=== PATIENT | male | born 1990 | race Caucasian/White ===

== ENCOUNTER 2021-05-12 22:29 | Emergency (ER) | payer BC ==
[2021-05-12] MEDS ORDERED: Sodium Chloride 0.9% 2.5 ML Syringe FLUSH PRN (23:48)
[2021-05-12] MEDS ORDERED: Sodium Chloride 0.9% 1,000 ML IV ONE (23:48)
[2021-05-12] MEDS ORDERED: Sodium Chloride 0.9% 10 ML Syringe FLUSH PRN (23:48)
[2021-05-12] MEDS ORDERED: Ondansetron 4 MG/2 ML SDV IVPUSH ONE (23:48)
[2021-05-12] MEDS ORDERED: Ketorolac 15 MG/ML SDV IVPUSH ONE (23:48)
[2021-05-12] MEDS ORDERED: HYDROmorphone 1 MG/ML Syringe IVPUSH ONE (23:48)
[2021-05-12] MEDS ORDERED: HYDROmorphone 1 MG/ML Syringe ONE (23:50)
--- NOTE | 2021-05-12 23:57 | EDM.PDOC ---
ED HPI GENERAL MEDICAL PROBLEM - General Chief Complaint: Genitourinary Problem Stated Complaint: SEVERE GROIN PAIN Time Seen by Provider: 05/12/21 23:40 - History of Present Illness INITIAL COMMENTS - FREE TEXT/NARRATIVE: HISTORY AND PHYSICAL: History of present illness: This is a 30-year-old gentleman with a history significant for kidney stone that was diagnosed approximately 1 month ago who presents ER today complaining of left testicular pain that started earlier this evening. Patient reports that he had pain in his testicle in the past when he was diagnosed with a kidney stone however does feel slightly worse. Patient reports that he did have an ultrasound of his left testicle at that time that revealed no torsion. Patient has any recent fevers, shakes, chills, nausea, vomiting, diarrhea, dysuria, frequency or urgency. Patient has any hematuria or penile discharge. Review of systems: As per history of present illness and below otherwise all systems reviewed and negative. Past medical history: As per history of present illness and as reviewed below otherwise noncontributory. Surgical history: As per history of present illness and as reviewed below otherwise noncontributory. Social history: No reported history of drug abuse. Family history: As per history of present illness and as reviewed below otherwise noncontributory. Physical exam: This patient was seen and evaluated during the 2019 SARS-CoV-2 novel coronavirus pandemic period. Community viral transmission is ongoing at time of this encounter and the emergency department is operating under pandemic response procedures. Constitutional: Patient is oriented to person, place, and time. Appears well- developed and well-nourished. No distress. HEENT: Moist mucous membranes Head: Normocephalic and atraumatic Eyes: Right eye exhibits no discharge. Left eye exhibits no discharge. No scleral icterus Neck: Normal range of motion. No tracheal deviation present. Cardiovascular: Normal rate and regular rhythm. Pulmonary: Effort normal, no respiratory distress. Abdominal: No distention Musculoskeletal: Normal range of motion Neurologic: Alert and oriented to person, place and time. Skin: [place], warm and dry. Psychiatric: Normal mood and affect. Behavior is normal. Judgment and thought content normal. Nursing note and vital signs have been reviewed Testes are nontender. No swelling, masses, lymphadenopathy, or hernia defect. Normal cremasteric reflex. No penile discharge. Diagnostics: Ultrasound of scrotum: No evidence of torsion CBC, CMP within normal limits CT scan of the abdomen pelvis the contrast revealed a 5 mm distal UVJ stone with mild hydronephrosis on the left Therapeutics: Toradol, Flomax, NSS Assessment and plan: 28-year-old gentleman who presents ER today with history of kidney stones complaining of pain to his left testicle. Ultrasound reveals no evidence of torsion. A CT scan of the abdomen pelvis reveals a 5 mm distal UVJ stone on the left as the culprit. Unclear whether or not this the same stone from a month ago or different stone. Patient was given a prescription for tramadol, Flomax, Zofran with instructions follow-up with urology. Reassessment at the time of disposition demonstrates that the patient is in no acute distress. The patient has remained stable throughout the entire ED visit and is without objective evidence for acute process requiring urgent in tervention or hospitalization. The patient is stable for discharge, counseling is provided as documented above, discussed symptomatic treatment and specific conditions for return. I have spoken with the patient/caregiver and discussed todays findings, in addition to providing specific details for the plan of care. Questions are answered and there is agreement with the plan. Definitive disposition and diagnosis as appropriate pending reevaluation and review of above. Left Scrotum Pain Score (Numeric/FACES): 10 - Related Data Allergies Allergy/AdvReac Type Severity Reaction Status Date / Time amoxicillin [From Augmentin] Allergy Other Verified 05/13/21 00:00 azithromycin Allergy Other Verified 05/13/21 00:00 clavulanic acid Allergy Other Verified 05/13/21 00:00 [From Augmentin] Home Meds: Home Meds Fingolimod [Gilenya] 0.5 mg PO DAILY 05/13/21 [History] Ibuprofen 600 mg PO Q6HR PRN #30 tablet 05/13/21 [Rx] Ondansetron [Zofran ODT] 4 mg PO Q6H PRN #12 tab.dis 05/13/21 [Rx] Sertraline [Zoloft] 100 mg PO DAILY 05/13/21 [History] Tamsulosin HCl [Flomax] 0.4 mg PO BEDTIME #7 cap.er.24h 05/13/21 [Rx] traMADol [Ultram] 50 mg PO Q6H PRN #12 tab 05/13/21 [Rx] Past Medical History Genitourinary History: Reports: Renal Calculus Musculoskeletal History: Reports: Other (See Below) Other Musculoskeletal History: multiple sclerosis Psychiatric History: Reports: Anxiety, PTSD Immunologic History: Reports: None - Infectious Disease History Infectious Disease History: Reports: Chicken Pox Social & Family History - Tobacco Use Tobacco Use Status *Q: Light Tobacco User Years of Tobacco use: 15 Packs/Tins Daily: 0.5 - Caffeine Use Caffeine Use: Reports: Energy Drinks - Recreational Drug Use Recreational Drug Use: No ED ROS GENERAL - Review of Systems Review Of Systems: See Below ED EXAM, GENERAL - Physical Exam Exam: See Below Course - Vital Signs Last Recorded V/S: Last Vital Signs Temp 97.9 F 05/12/21 23:16 Pulse 70 05/13/21 02:51 Resp 18 05/13/21 02:51 BP 110/74 05/13/21 02:51 Pulse Ox 97 05/13/21 02:51 - Orders/Labs/Meds Orders: Active Orders 24 hr Category Date Time Status Scrotal Duplex Ltd [US] Routine Exams 05/13/21 00:33 Taken Sodium Chloride 0.9% [Saline Flush] Med 05/12/21 23:48 Active 10 ml FLUSH ASDIRECTED PRN Sodium Chloride 0.9% [Saline Flush] Med 05/12/21 23:48 Active 2.5 ml FLUSH ASDIRECTED PRN Saline Lock Insert [OM.PC] Stat Oth 05/12/21 23:48 Ordered Medication Orders Sodium Chloride (Sodium Chloride 0.9% 10 Ml Syringe) 10 ml FLUSH ASDIRECTED PRN PRN Reason: Keep Vein Open Last Admin: 05/12/21 23:54 Dose: 10 ml Documented by: LAUREN Sodium Chloride (Sodium Chloride 0.9% 2.5 Ml Syringe) 2.5 ml FLUSH ASDIRECTED PRN PRN Reason: Keep Vein Open Last Admin: 05/12/21 23:55 Dose: 2.5 ml Documented by: LAUREN Labs: Laboratory Tests 05/12/21 05/12/21 05/12/21 Range/Units 22:45 22:45 23:52 WBC 11.86 H (4.0-11.0) K/uL RBC 5.59 (4.50-5.90) M/uL Hgb 16.4 (13.0-17.0) g/dL Hct 46.3 (38.0-50.0) % MCV 82.8 (80.0-98.0) fL MCH 29.3 (27.0-32.0) pg MCHC 35.4 (31.0-37.0) g/dL RDW Std Deviation 39.7 (28.0-62.0) fl RDW Coeff of Diana 13 (11.0-15.0) % Plt Count 256 (150-400) K/uL MPV 11.40 (7.40-12.00) fL Neut % (Auto) 76.1 (48.0-80.0) % Lymph % (Auto) 14.2 L (16.0-40.0) % [place] % (Auto) 7.4 (0.0-15.0) % Eos % (Auto) 2.0 (0.0-7.0) % Baso % (Auto) 0.3 (0.0-1.5) % Neut # (Auto) 9.0 H (1.4-5.7) K/uL Lymph # (Auto) 1.7 (0.6-2.4) K/uL [place] # (Auto) 0.9 H (0.0-0.8) K/uL Eos # (Auto) 0.2 (0.0-0.7) K/uL Baso # (Auto) 0.0 (0.0-0.1) K/uL Nucleated RBC % 0.0 /100WBC Nucleated RBCs # 0 K/uL Sodium (136-148) mmol/L Potassium (3.5-5.1) mmol/L Chloride (98-107) mmol/L Carbon Dioxide (21.0-32.0) mmol/L BUN (7.0-18.0) mg/dL Creatinine (0.8-1.3) mg/dL Est Cr Clr Drug Dosing mL/min Estimated GFR (MDRD) ml/min Glucose (74-106) mg/dL Calcium (8.5-10.1) mg/dL Total Bilirubin (0.2-1.0) mg/dL AST (15-37) IU/L ALT (14-63) IU/L Alkaline Phosphatase (46-116) U/L Total Protein (6.4-8.2) g/dL Albumin (3.4-5.0) g/dL Globulin (2.6-4.0) g/dL Albumin/Globulin Ratio (0.9-1.6) Urine Color YELLOW YELLOW Urine Appearance CLEAR HAZY Urine pH 6.0 6.0 (5.0-8.0) Ur Specific [place] >= 1.030 >= 1.030 (1.001-1.035) Urine Protein NEGATIVE NEGATIVE (NEGATIVE) mg/dL Urine Glucose (UA) NEGATIVE NEGATIVE (NEGATIVE) mg/dL Urine Ketones NEGATIVE NEGATIVE (NEGATIVE) mg/dL Urine Occult Blood NEGATIVE NEGATIVE (NEGATIVE) Urine Nitrite NEGATIVE NEGATIVE (NEGATIVE) Urine Bilirubin NEGATIVE NEGATIVE (NEGATIVE) Urine Urobilinogen 0.2 0.2 (<2.0) EU/dL Ur Leukocyte Esterase NEGATIVE NEGATIVE (NEGATIVE) 05/12/21 Range/Units 23:52 WBC (4.0-11.0) K/uL RBC (4.50-5.90) M/uL Hgb (13.0-17.0) g/dL Hct (38.0-50.0) % MCV (80.0-98.0) fL MCH (27.0-32.0) pg MCHC (31.0-37.0) g/dL RDW Std Deviation (28.0-62.0) fl RDW Coeff of Diana (11.0-15.0) % Plt Count (150-400) K/uL MPV (7.40-12.00) fL Neut % (Auto) (48.0-80.0) % Lymph % (Auto) (16.0-40.0) % [place] % (Auto) (0.0-15.0) % Eos % (Auto) (0.0-7.0) % Baso % (Auto) (0.0-1.5) % Neut # (Auto) (1.4-5.7) K/uL Lymph # (Auto) (0.6-2.4) K/uL [place] # (Auto) (0.0-0.8) K/uL Eos # (Auto) (0.0-0.7) K/uL Baso # (Auto) (0.0-0.1) K/uL Nucleated RBC % /100WBC Nucleated RBCs # K/uL Sodium 143 (136-148) mmol/L Potassium 4.0 (3.5-5.1) mmol/L Chloride 102 (98-107) mmol/L Carbon Dioxide 30.0 (21.0-32.0) mmol/L BUN 14 (7.0-18.0) mg/dL Creatinine 1.4 H (0.8-1.3) mg/dL Est Cr Clr Drug Dosing 85.61 mL/min Estimated GFR (MDRD) 58.7 ml/min Glucose 130 H (74-106) mg/dL Calcium 9.0 (8.5-10.1) mg/dL Total Bilirubin 0.7 (0.2-1.0) mg/dL AST 54 H (15-37) IU/L ALT 129 H (14-63) IU/L Alkaline Phosphatase 86 (46-116) U/L Total Protein 8.2 (6.4-8.2) g/dL Albumin 4.5 (3.4-5.0) g/dL Globulin 3.7 (2.6-4.0) g/dL Albumin/Globulin Ratio 1.2 (0.9-1.6) Urine Color Urine Appearance Urine pH (5.0-8.0) Ur Specific [place] (1.001-1.035) Urine Protein (NEGATIVE) mg/dL Urine Glucose (UA) (NEGATIVE) mg/dL Urine Ketones (NEGATIVE) mg/dL Urine Occult Blood (NEGATIVE) Urine Nitrite (NEGATIVE) Urine Bilirubin (NEGATIVE) Urine Urobilinogen (<2.0) EU/dL Ur Leukocyte Esterase (NEGATIVE) Meds: Medications Generic Name Dose Route Start Last Admin Trade Name Gab PRN Reason Stop Dose Admin Sodium Chloride 10 ml 05/12/21 23:48 05/12/21 23:54 Sodium Chloride 0.9% 10 Ml Syringe FLUSH 10 ml ASDIRECTED PRN Administration Keep Vein Open Sodium Chloride 2.5 ml 05/12/21 23:48 05/12/21 23:55 Sodium Chloride 0.9% 2.5 Ml Syringe FLUSH 2.5 ml ASDIRECTED PRN Administration Keep Vein Open Discontinued Medications Generic Name Dose Route Start Last Admin Trade Name Gab PRN Reason Stop Dose Admin Hydromorphone HCl Confirm 05/12/21 23:50 05/12/21 23:56 Hydromorphone 1 Mg/Ml Syringe Administered 05/12/21 23:51 Not Given Dose 1 mg .ROUTE .STK-MED ONE Hydromorphone HCl 1 mg 05/12/21 23:48 05/12/21 23:56 Hydromorphone 1 Mg/Ml Syringe IVPUSH 05/12/21 23:49 Not Given ONETIME ONE Sodium Chloride 1,000 mls @ 999 mls/hr 05/12/21 23:48 05/12/21 23:55 Normal Saline IV 05/13/21 00:48 999 mls/hr .Bolus ONE Administration Ketorolac Tromethamine 15 mg 05/12/21 23:48 05/12/21 23:53 Ketorolac 15 Mg/Ml Sdv IVPUSH 05/12/21 23:49 15 mg ONETIME ONE Administration Ondansetron HCl 4 mg 05/12/21 23:48 05/12/21 23:52 Ondansetron 4 Mg/2 Ml Sdv IVPUSH 05/12/21 23:49 4 mg ONETIME ONE Administration Tamsulosin HCl 0.4 mg 05/13/21 02:56 Tamsulosin 0.4 Mg Cap.Er PO 05/13/21 02:57 ONETIME ONE Departure - Departure Time of Disposition: 03:00 Disposition: Home, Self-Care 01 Condition: Good Clinical Impression: Renal colic on left side - Discharge Information Instructions: Renal Colic Referrals: PCP,None [Primary Care Provider] - Forms: ED Department Discharge Additional Instructions: Your seen and evaluated in ER today secondary to pain to your left testicle. The ultrasound of your scrotum reveals no evidence of twisting of your testicles. The CT scan of your abdomen pelvis does reveal a 5 mm stone at the distal aspect of your ureter with a small amount of swelling of your kidney. You will be given a prescription for Zofran help with nausea, Flomax help you push the stone, and tramadol to be with pain. Please follow-up with urology up in [facility] for follow-up. The following information is given to patients seen in the emergency department who are being discharged to home. This information is to outline your options for follow-up care. We provide all patients seen in our emergency department with a follow-up referral. The need for follow-up, as well as the timing and circumstances, are variable depending upon the specifics of your emergency department visit. If you don't have a primary care physician on staff, we will provide you with a referral. We always advise you to contact your personal physician following an e mergency department visit to inform them of the circumstance of the visit and for follow-up with them and/or the need for any referrals to a consulting specialist. The emergency department will also refer you to a specialist when appropriate. This referral assures that you have the opportunity for follow-up care with a specialist. All of these measure are taken in an effort to provide you with op timal care, which includes your follow-up. Under all circumstances we always encourage you to contact your private physician who remains a resource for coordinating your care. When calling for follow-up care, please make the office aware that this follow-up is from your recent emergency room visit. If for any reason you are refused follow-up, please contact the [facility] Emergency Department at and asked to speak to the emergency department charge nurse. [facility] [address] [place] [address] [place] [address] Sepsis Event Note (ED) - Evaluation Sepsis Screening Result: No Definite Risk - Focused Exam Vital Signs: Vital Signs Temp Pulse Resp BP Pulse Ox 05/13/21 02:51 70 18 110/74 97 05/12/21 23:16 97.9 F 80 16 156/86 H 99 - My Orders Last 24 Hours: My Active Orders 05/12/21 23:48 Sodium Chloride 0.9% [Saline Flush] 10 ml FLUSH ASDIRECTED PRN Sodium Chloride 0.9% [Saline Flush] 2.5 ml FLUSH ASDIRECTED PRN Saline Lock Insert [OM.PC] Stat 05/13/21 00:33 Scrotal Duplex Ltd [US] Routine - Assessment/Plan Last 24 Hours: My Active Orders 05/12/21 23:48 Sodium Chloride 0.9% [Saline Flush] 10 ml FLUSH ASDIRECTED PRN Sodium Chloride 0.9% [Saline Flush] 2.5 ml FLUSH ASDIRECTED PRN Saline Lock Insert [OM.PC] Stat 05/13/21 00:33 Scrotal Duplex Ltd [US] Routine
--- NOTE | 2021-05-13 01:52 | US ---
INDICATION: LEFT TESTICULAR PAIN SCROTAL ULTRASOUND Multiple sonographic images of the scrotum were performed. The testes appear normal bilaterally, the right testis measuring 4.9 x 2.7 x 2.4cm and the left testis measuring 4.5 x 3.1 x 2.3cm. No intratesticular masses are seen. Intratesticular Doppler blood flow is demonstrated bilaterally. The epididymides are unremarkable aside from a few tiny left epidydimal cysts. Trace hydroceles are identified, likely physiologic. IMPRESSION: Negative scrotal ultrasound. No evidence of torsion. DRE MCKEON MD [facility] Dictated by: Stewart Mckeon MD @ 05/13/2021 01:50:53 (Electronically Signed)
--- NOTE | 2021-05-13 01:56 | CT ---
INDICATION: LEFT GROIN AND FLANK PAIN CT ABDOMEN AND PELVIS WITHOUT CONTRAST TECHNIQUE: Multidetector CT imaging was performed through the abdomen and pelvis without intravenous or oral contrast. Coronal and sagittal reconstructions were generated. COMPARISON: None. FINDINGS: There is a 5mm stone in the distal left ureter producing mild ureteral dilation and mild left hydronephrosis. No other urinary tract stones are noted. Included portions of the lower chest show the lung bases to be clear. No abnormalities are demonstrated in the unenhanced liver, spleen, gallbladder, pancreas, stomach, and adrenals. Bowel loops are of normal caliber and demonstrate no wall thickening. The appendix is normal. No free fluid or free air is identified. The abdominal aorta appears normal. No abnormally enlarged lymph nodes are seen. The urinary bladder, prostate, and seminal vesicles are within normal limits. Visualized bones show no significant findings. IMPRESSION: 5mm stone in the distal left ureter at the UVJ producing mild left hydroureteronephrosis. DRE MCKEON MD [facility] Please note that all CT scans at this facility use dose modulation, iterative reconstruction, and/or weight-based dosing when appropriate to reduce radiation dose to as low as reasonably achievable. Dictated by: Stewart Mckeon MD @ 05/13/2021 01:55:33 (Electronically Signed)
[2021-05-13] MEDS ORDERED: Tamsulosin 0.4 MG Cap.ER PO ONE (02:56)
--- NOTE | 2021-05-13 11:20 | US ---
NDICATION: LEFT TESTICULAR PAIN SCROTAL ULTRASOUND Multiple sonographic images of the scrotum were performed. The testes appear normal bilaterally, the right testis measuring 4.9 x 2.7 x 2.4cm and the left testis measuring 4.5 x 3.1 x 2.3cm. No intratesticular masses are seen. Intratesticular Doppler blood flow is demonstrated bilaterally. The epididymides are unremarkable aside from a few tiny left epidydimal cysts. Trace hydroceles are identified, likely physiologic. IMPRESSION: Negative scrotal ultrasound. No evidence of torsion. STEPHEN MCKEON MD [facility] Dictated by: Stewart Mckeon MD @ 05/13/2021 01:50:53 (Electronically Signed) Dictated by: Stephen Mckeon MD 05/13/21 at 11 19 , 0049 T: , Doc Number: [id number] Copies To: Jan Louis MD; PCP,None ~ MTDD
== END 2021-05-13 03:09 | disposition home or self-care (01) ==
LOC: MW.ED 22:29
DX: N13.2 Hydronephrosis with renal and ureteral calculous obstruction (principal); Z72.0 Tobacco use; Z88.0 Allergy status to penicillin; Z88.1 Allergy status to other antibiotic agents; Z79.899 Other long term (current) drug therapy
CPT/HCPCS: 36415; 74176; 76870; 80053; 81003; 85025; 93976; 96374; 96375; 99284; J1885; J2405; J7030

== ENCOUNTER 2022-01-18 23:00 | Emergency (ER) | payer BC ==
[2022-01-19] MEDS ORDERED: Sodium Chloride 0.9% 10 ML Syringe FLUSH PRN (01:56)
[2022-01-19] MEDS ORDERED: Sodium Chloride 0.9% 2.5 ML Syringe FLUSH PRN (01:56)
[2022-01-19] MEDS ORDERED: LORazepam 2 MG/ML SDV IVPUSH ONE (01:57)
[2022-01-19 03:21] LABS: CARBON DIOXIDE,CO2 24.4 mmol/L (21.0-32.0)
== END 2022-01-19 04:10 | disposition home or self-care (01) ==
LOC: MW.ED 23:00
DX: R20.2 Paresthesia of skin (principal); Z88.1 Allergy status to other antibiotic agents; Z88.0 Allergy status to penicillin
CPT/HCPCS: 36415; 70450; 80053; 83735; 85025; 96374; 99284; J2060; J3490

== ENCOUNTER 2022-06-26 16:59 | Emergency (ER) | payer BC ==
[2022-06-26] MEDS ORDERED: Benzocaine 20% Topical Spray UD MUCMEM ONE (17:42)
[2022-06-26] MEDS ORDERED: Lidocaine 2% Viscous Solution 15 ML UD PO ONE (17:42)
== END 2022-06-26 18:30 | disposition home or self-care (01) ==
LOC: MW.ED 16:59
DX: K04.7 Periapical abscess without sinus (principal); F17.210 Nicotine dependence, cigarettes, uncomplicated; Z88.0 Allergy status to penicillin; Z88.1 Allergy status to other antibiotic agents
CPT/HCPCS: 99282; A9270